=== PATIENT | female | born 1995 ===

== ENCOUNTER → 2025-01-21 | Outpatient (CLI) | payer OTHER ==
[2025-01-21 17:16] LABS: Bacterial Vaginosis PCR Negative (NEGATIVE); Candida glabrata-krusei, PCR NOT DETECTED (NOT DETECT)
[2025-01-21 17:21] LABS: Candida Group, PCR DETECTED (NOT DETECT)
== END ==
LOC: LAB 12:15 → LAB SHORT 12:15
PROVIDERS: Advanced Practice Midwife
DX: N76.0 Acute vaginitis (principal)
CPT/HCPCS: 81515